=== PATIENT | female | born 1955 | race Two or more races ===

== ENCOUNTER 2020-12-25 14:36 | Emergency (ER) | payer OTHER ==
[~2020-12-25] VITALS: Ht 157.5 cm; Wt 65.3 kg
[2020-12-25] MEDS ORDERED: FLURBIPROFEN100 MG PO (16:37)
== END 2020-12-25 17:41 | disposition home or self-care (01) ==
LOC: ER 14:36
DX: M54.12 Radiculopathy, cervical region (principal); M54.2 Cervicalgia

== ENCOUNTER 2021-08-10 14:37 | Emergency (ER) | payer OTHER ==
[~2021-08-10] VITALS: Ht 157.5 cm; Wt 63.5 kg
[~2021-08-10 14:37] MED LIST: FLURBIPROFEN100 MG PO
[2021-08-10] MEDS ORDERED: AMBIEN10 MG PO (14:47)
== END 2021-08-10 22:40 | disposition home or self-care (01) ==
LOC: ER 14:37
DX: R10.13 Epigastric pain (principal); Z20.822 Contact with and (suspected) exposure to COVID-19
CPT/HCPCS: 74176; Q9965

== ENCOUNTER 2022-06-25 14:08 | Emergency (ER) | payer OTHER ==
[~2022-06-25] VITALS: Ht 157.5 cm; Wt 60.8 kg
[~2022-06-25 14:08] MED LIST changes: +AMBIEN10 MG PO
== END 2022-06-25 18:31 | disposition home or self-care (01) ==
LOC: ER 14:08
DX: K58.8 Other irritable bowel syndrome (principal); R51.9 Headache, unspecified

== ENCOUNTER 2022-11-26 13:04 | Emergency (ER) | payer OTHER ==
[~2022-11-26] VITALS: Ht 157.5 cm; Wt 59.0 kg
[2022-11-26] MEDS ORDERED: ALENDRONATE SOD70 MG (13:10)
[2022-11-26] MEDS ORDERED: FOLIC ACID1 MG (13:11)
[2022-11-26] MEDS ORDERED: METHOTREXA25 MG/1 M5 (13:11)
[2022-11-26] MEDS ORDERED: RAYOS1 MG (13:11)
== END 2022-11-26 18:16 | disposition home or self-care (01) ==
LOC: ER 13:04
DX: R10.13 Epigastric pain (principal); K57.30 Diverticulosis of large intestine without perforation or abscess without bleeding

== ENCOUNTER 2023-06-24 08:16 | Emergency (ER) | payer OTHER ==
[~2023-06-24] VITALS: Ht 157.5 cm; Wt 59.9 kg
[~2023-06-24 08:16] MED LIST changes: +ALENDRONATE SOD70 MG; +FOLIC ACID1 MG; +METHOTREXA25 MG/1 M5; +RAYOS1 MG
[2023-06-24 09:32] LABS: HEMATOCRIT 38.8 % (36.0-45.00); HEMOGLOBIN 13.2 g/dL (12.0-15.00); MEAN CELL VOLUME 92.1 fL (80.00-100.00); MEAN CORPUSCULAR HEMOGLOBIN 31.3 pg (27.00-32.0); PLATELET COUNT 302 K/uL (150-450); RED BLOOD COUNT 4.21 M/uL (4.00-6.00); RED CELL DISTRIBUTION WIDTH 14.5 % (11.5-14.5)
[2023-06-24 10:05] LABS: ALBUMIN 3.4 gm/dL (3.4-5.0); BILIRUBIN TOTAL 0.34 mg/dL (0.3-1.2); CALCIUM 8.7 mg/dL (8.5-10.1); CREATININE SERUM 0.73 mg/dL (0.55-1.02); GFR 79.05; POTASSIUM 3.38 mEq/L (3.5-5.1); TOTAL PROTEIN 7.4 gm/dL (6.4-8.2)
== END 2023-06-24 12:38 | disposition home or self-care (01) ==
LOC: ER 08:16
PROVIDERS: General Practice
DX: B34.8 Other viral infections of unspecified site (principal); Z20.822 Contact with and (suspected) exposure to COVID-19